=== PATIENT | female | born 1960 | race Caucasian/White ===

== ENCOUNTER 2017-09-15 11:12 | Emergency (ER) | payer OTHER ==
[2017-09-15 11:26] VITALS: BP 140/85; PULSE 73; RESP 16; TEMP 98.1; O2SAT 95
--- NOTE | 2017-09-15 11:59 | EDPHY ---
H & P Time Seen by Provider: 09/15/17 11:34 HPI/ROS: This patient describes a 3 week history of nasal congestion with progressive facial pain maxillary more than frontal sinuses. The pain worsens when she bends forward or coughs. She describes 5/10 pain in the sinuses. She had no significant improvement with [id number] fluticasone and Neti pot. She also reports a cough occasionally productive of sputum over the same period of time. She has been using her albuterol inhaler for her asthma more frequently as well typically 3 to 4 times a day. She does not have a spacer for albuterol and she just ran out of albuterol. She also complains of a sore throat at the region of the larynx this started today and is mild in intensity. Her drove her here by private vehicle for evaluation of her symptoms. ROS: Constitutional: No high fevers or fatigue. HEENT: No ear pain. Pulmonary: No pleuritic pain. Mild dyspnea improves with albuterol. No hemoptysis. No respiratory distress or pleuritic pain. Cardiovascular: No chest pain at baseline. No significant lightheadedness or leg swelling or pain. GI: No nausea vomiting Neuro: No generalized headache or confusion. No focal neuro symptoms. 7 point ROS is otherwise negative. Past Medical/Surgical History: Mild asthma. No asthma exacerbations that required emergency department visits in the past year. Smoking Status: Never smoked Physical Exam: Physical Exam Vital signs are normal. General: No acute distress HEENT: Nose: She has right more than left maxillary sinus tenderness to percussion. Yellow nasal discharge present. Ears: External canals and tympanic membranes are clear with no erythema or abnormal findings bilaterally. Oropharynx: No erythema or exudates. No dysphonia. No drooling or stridor. Eyes: Pupils equal and react to light. Extraocular motions are intact. Neck: Supple with no meningismus. No lymphadenopathy Lungs: Minimal expiratory wheeze only notable when she coughs. No rales or rhonchi. Cardiac: Regular rate and rhythm with no murmur gallop or rub Skin: No rash or pallor. Neuro: Alert with no focal deficits noted. Initial differential diagnosis: Bacterial sinusitis, viral rhinosinusitis, URI with cough, asthma without significant exacerbation, doubt lower respiratory infection, bronchitis Constitutional: Initial Vital Signs Temperature (C) 36.7 C 09/15/17 11:18 Heart Rate 73 09/15/17 11:18 Respiratory Rate 16 09/15/17 11:18 Blood Pressure 140/85 H 09/15/17 11:18 O2 Sat (%) 95 09/15/17 11:18 O2 Delivery Mode Room Air Allergies/Adverse Reactions: No Known Allergies Allergy (Verified 09/15/17 11:15) Home Medications: Medication Instructions Recorded Lansoprazole [Prevacid] 08/22/11 Albuterol PRN 09/15/17 Albuterol Hfa Anes Only [Proair 2 puffs IH Q4 PRN #1 mdi 09/15/17 Hfa Icu (*)] Azithromycin Oral Liquid 500 mg PO DAILY #1 bottle 09/15/17 [Zithromax Oral Liquid] Fluticasone Hfa 220 Mcg [Flovent 2 puffs IH DAILY #1 mdi 09/15/17 220 MCG Hfa MDI (*)] MDM/Departure - MDM ED Course/Re-evaluation: Discussion: 3 weeks of symptoms with sinusitis concerning for potential bacterial sinusitis. I counseled the patient regarding this. She does not have evidence of [employer] infection clinically or lower respiratory infection. Also despite her history of asthma no significant respiratory findings currently. I think that her low injury ill discomfort is attributable to her coughing. No pharyngeal findings on exam. No stridor or other concerning findings. Will plan to treat her with Zithromax, albuterol, Flovent and guaifenesin. I answered all her questions prior to discharge home. - Depart Disposition: Home, Routine, Self-Care Clinical Impression: Acute sinusitis Qualifiers: Sinusitis location: maxillary Recurrence: non-recurrent Qualified Code(s): J01.00 - Acute maxillary sinusitis, unspecified Asthma Qualifiers: Asthma severity: mild Asthma persistence: intermittent Asthma complication type : unspecified Qualified Code(s): J45.20 - Mild intermittent asthma, uncomplicated Condition: Good Instructions: Asthma (ED), Sinusitis (ED) Additional Instructions: Diagnoses: 1. Acute sinusitis 2. Asthma Plan: Humidifier Plain guaifenesin Albuterol inhaler with spacer for cough, wheeze or shortness of breath Zithromax antibiotic Flovent steroid inhaler Follow-up with primary care physician for any symptoms that persist beyond the next 5-7 days despite the treatment plan Return for any significant worsening despite the treatment plan. Prescriptions: Albuterol Hfa Anes Only [Proair Hfa Icu (*)] 2 puffs IH Q4 PRN #1 mdi PRN Reason: Wheezing Azithromycin Oral Liquid [Zithromax Oral Liquid] 500 mg PO DAILY #1 bottle Fluticasone Hfa 220 Mcg [Flovent 220 MCG Hfa MDI (*)] 2 puffs IH DAILY #1 mdi Referrals: Haritha Turner, PAC [Primary Care Provider] - As per Instructions
== END 2017-09-15 12:05 | disposition home or self-care (01) ==
LOC: CED 11:12
DX: J45.20 Mild intermittent asthma, uncomplicated (principal); J01.00 Acute maxillary sinusitis, unspecified